=== PATIENT | female | born 1995 | race African-American/Black ===

== ENCOUNTER 2016-12-05 14:55 | Emergency (ER) | payer OTHER ==
--- NOTE | 2016-12-05 15:04 | PDOC ---
History of Present Illness - General History Source: Patient Exam Limitations: No Limitations - History of Present Illness Initial Comments: 12/05/16 15:23 The patient is a 21 year old female, with no significant past medical history who presents to the emergency department with sore throat for 2 days. She reports also having trouble swallowing solids and liquids. She denies taking any [id number] medication for pain relief. She reports also having back pain. She denies recent fevers, chills, headache or dizziness. She denies recent nausea, vomit, diarrhea or constipation. LMP november 02, 2016. Allergies: NKDA Past surgical history: denies Social history: Nonsmoker. Denies EtOH and drug abuse. <Deshawn Silva - Last Filed: 12/05/16 15:55> <Jackie Davis - Last Filed: 12/05/16 17:54> - General Chief Complaint: Sore Throat Stated Complaint: SORE THROAT Time Seen by Provider: 12/05/16 14:57 Past History <Deshawn Silva - Last Filed: 12/05/16 15:55> <Jackie Davis - Last Filed: 12/05/16 17:54> - Past Medical History Allergies/Adverse Reactions: Allergies Allergy/AdvReac Type Severity Reaction Status Date / Time No Known Allergies Allergy Verified 12/05/16 15:30 Home Medications: Ambulatory Orders NK [No Known Home Medication] 12/05/16 Review of Systems - Review of Systems Able to Perform ROS?: Yes Comments:: 12/05/16 15:23 GENERAL/CONSTITUTIONAL: No fever or chills. No weakness. HEAD, EYES, EARS, NOSE AND THROAT: +sore throat. No change in vision. No ear pain or discharge. CARDIOVASCULAR: No chest pain or shortness of breath. RESPIRATORY: No cough, wheezing, or hemoptysis. GASTROINTESTINAL: No nausea, vomiting, diarrhea or constipation. GENITOURINARY: No dysuria, frequency, or change in urination. MUSCULOSKELETAL: +back pain. No joint or muscle swelling or pain. No neck pain. SKIN: No rash NEUROLOGIC: No headache, vertigo, loss of consciousness, or change in strength/ sensation. ENDOCRINE: No increased thirst. No abnormal weight change. HEMATOLOGIC/LYMPHATIC: No anemia, easy bleeding, or history of blood clots. ALLERGIC/IMMUNOLOGIC: No hives or skin allergy. <Deshawn Sliva - Last Filed: 12/05/16 15:55> *Physical Exam - Vital Signs Last Vital Signs Temp Pulse Resp BP Pulse Ox 100.1 F H 101 H 20 128/93 99 12/05/16 14:56 12/05/16 14:56 12/05/16 14:56 12/05/16 14:56 12/05/16 14:56 - Physical Exam Comments: 12/05/16 15:55 GENERAL: Awake, alert, and fully oriented, ill appearing but nontoxic. HEAD: No signs of trauma EYES: PERRLA, EOMI, sclera anicteric, conjunctiva clear ENT: Auricles normal inspection, hearing grossly normal, nares patent, oropharynx erythema and bilateral tonsillar exudates with tonsillar hypertrophy bilaterally. NECK: Normal ROM, supple, + anterior cervical lymphadenopathy. LUNGS: Breath sounds equal, clear to auscultation bilaterally. No wheezes, and no crackles HEART: Regular rate and rhythm, normal S1 and S2, no murmurs, rubs or gallops ABDOMEN: Soft, nontender, normoactive bowel sounds. No guarding, no rebound. No masses EXTREMITIES: Normal range of motion, no edema. No clubbing or cyanosis. No cords, erythema, or tenderness NEUROLOGICAL: Cranial nerves II through XII grossly intact. Normal speech, normal gait SKIN: Warm, Dry, normal turgor, no rashes or lesions noted. <Deshawn Silva - Last Filed: 12/05/16 15:55> *DC/Admit/Observation/Transfer - Attestations Scribe Attestion: 12/05/16 15:23 Documentation prepared by Deshawn Silva, acting as medical practice administrator for Jackie Davis MD. <Deshawn Silva - Last Filed: 12/05/16 15:55> - Discharge Dispostion Admit: No <Jackie Davis - Last Filed: 12/05/16 17:54> Diagnosis at time of Disposition: Strep throat - Discharge Dispostion Disposition: HOME Condition at time of disposition: Stable - Patient Instructions Printed Discharge Instructions: DI for Strep Throat Addendum entered and electronically signed by Jackie Davis MD 12/05/16 18:25: Progress Note - Progress Note Progress Note: After discharge, pt returned to ED at 18:19, stating she hit her head on the door as she exited the ED. She states that it would not open, so she forced it open, then it started to automatically open and hit her head. She did not see the sign to use the button to open the door. She did not lose consciousness. She denies nausea, vomiting, vision change. C/o localized pain to the R forehead. Noted to have small area of swelling. No indication for advanced imaging at this time. Pt was offered an ice pack, pain medication, or to let her lie down on a stretcher. She declined and left ED.
[2016-12-05 15:15] VITALS: BP 128/93; PULSE 101
[2016-12-05] MEDS ORDERED: ACETAMINOPHEN 650 MG/20.3 ML ORAL SOLUTION (CUPS) PO ONE (15:23)
[2016-12-05] MEDS ORDERED: PENICILLIN G BENZATHINE 1,200,000 UNIT/2 ML PFS IM ONE (15:30)
[2016-12-05] MEDS ORDERED: ONDANSETRON *ODT* 4 MG TABLET SL ONE (15:30)
[2016-12-05] MEDS ORDERED: DEXAMETHASONE LIQUID 0.5 MG/5 ML 240 ML BULK BOTTLE PO ONE (15:31)
[2016-12-05] MEDS ORDERED: ACETAMINOPHEN 650 MG/20.3 ML ORAL SOLUTION (CUPS) ONE (15:44)
[2016-12-05] MEDS ORDERED: ONDANSETRON *ODT* 4 MG TABLET ONE (15:44)
[2016-12-05] MEDS ORDERED: DEXAMETHASONE SOD PHOSPHATE 10 MG/1 ML VIAL ONE (15:45)
[2016-12-05] MEDS ORDERED: PENICILLIN G BENZATHINE 2,400,000 UNIT/4 ML PFS ONE (15:46)
[2016-12-05 17:50] LABS: URINE APPEARANCE Clear; URINE BILIRUBIN 1+ (NEGATIVE); URINE BLOOD 3+ (NEGATIVE); URINE COLOR YELLOW; URINE GLUCOSE (UA) Negative (NEGATIVE); URINE KETONE 4+ (NEGATIVE); URINE LEUK ESTERASE Trace (NEGATIVE); URINE NITRITE Negative (NEGATIVE); URINE PROTEIN 1+ (NEGATIVE); URINE UROBILINOGEN 0.2 E.U/dl (0.2-1.0)
[2016-12-05 17:56] LABS: URINE BACTERIA FEW /hpf (NEGATIVE)
[2016-12-05 18:16] VITALS: TEMP 99
== END 2016-12-05 18:16 | disposition home or self-care (01) ==
LOC: FER 14:55
DX: J02.0 Streptococcal pharyngitis (principal)
CPT/HCPCS: 81003; 81015; 84703; 87070; 87077; 87430; 99282-25

== ENCOUNTER 2017-05-13 22:35 | Emergency (ER) | payer OTHER ==
[2017-05-13 22:42] VITALS: BP 107/73; PULSE 75; TEMP 98.1; BMI 30.9
--- NOTE | 2017-05-13 22:45 | PDOC ---
History of Present Illness - General Chief Complaint: Pain, Acute Stated Complaint: LUMP ON SIDE OF NECK Time Seen by Provider: 05/13/17 22:44 History Source: Patient Exam Limitations: No Limitations - History of Present Illness Initial Comments: 05/13/17 23:04 This is a 22-year-old female who comes in complaining of a lump on the side of her neck. Patient said she has had the low 1 day. Patient complains that it is painful with some radiation to towards her ear. Patient denies any fevers or chills. PAST MEDICAL HISTORY: no significant history PAST SURGICAL HISTORY: no significant history FAMILY HISTORY: no pertinant history SOCIAL HISTORY: Pt lives with family and is employed. MEDICATIONS: reviewed ALLERGIES: As per nursing notes Review of Systems General: No fevers or chills, no weakness, no weight loss HEENT: No change in vision. No sore throat,. No ear pain, lump on his neck as per history of present illness CardioVascular: No chest pain or shortness of breath Respiratory:No cough, or wheezing. Gastrointestinal: no nausea, vomitting, diarrhea or constipation, No rectal bleeding Genitourinary: No dysuria, hematuria, or frequency Musculoskeletal: No joint or muscle pain or swelling Neurologic: No headache, vertigo, dizziness or loss of consciousness Psychiatric: nor depression Skin: No rashes or easy bruising Endocrine: no increased thirst or abnormal weight change Allergic: no skin or latex allergy All other systems reviewed and normal GENERAL: The patient is awake, alert, and fully oriented, in no acute distress. HEAD: Normal with no signs of trauma. NECK: There is a small area that appears to be a bug bite with an associated area of tenderness. Area of tenderness is approximately 3 x 3 mm. Area of tenderness is well-defined and firm. EYES: Pupils equal, round and reactive to light, extraocular movements intact, sclera anicteric, conjunctiva clear. EXTREMITIES: Normal range of motion, no edema. NEUROLOGICAL: Normal speech, normal gait. PSYCH: Normal mood, normal affect. SKIN: Warm, Dry, normal turgor, no rashes or lesions noted. Assessment and plan: This is a 22-year-old female with a localized reaction to a bug bite with possible reactive lymph node. Reassured patient that reaction is Minor and well resolved on its own with time likely 2-3 days. Told patient to follow-up with her memory care doctor in 2-3 days if not improved. Past History - Past Medical History Allergies/Adverse Reactions: Allergies Allergy/AdvReac Type Severity Reaction Status Date / Time No Known Allergies Allergy Verified 05/13/17 22:38 Home Medications: Ambulatory Orders NK [No Known Home Medication] 12/05/16 Other medical history: DENIES - Immunization History Immunization Up to Date: Yes - Psycho/Social/Smoking Cessation Hx Anxiety: No Suicidal Ideation: No Smoking History: Never smoked Have you smoked in the past 12 months: No Information on smoking cessation initiated: No Hx Alcohol Use: No Drug/Substance Use Hx: No Substance Use Type: None *Physical Exam - Vital Signs Last Vital Signs Temp Pulse Resp BP Pulse Ox 98.1 F 75 16 107/73 100 05/13/17 22:39 05/13/17 22:39 05/13/17 22:39 05/13/17 22:39 05/13/17 22:39 *DC/Admit/Observation/Transfer Diagnosis at time of Disposition: Enlarged lymph node in neck Bug bite Qualifiers: Encounter type: initial encounter Qualified Code(s): W57.XXXA - Bitten or stung by nonvenomous insect and other nonvenomous arthropods, initial encounter - Discharge Dispostion Disposition: HOME Condition at time of disposition: Stable Admit: No - Patient Instructions Additional Instructions: Tylenol or Motrin as needed for pain Return to the emergency department immediately with ANY new, persistent or worsening symptoms. Continue any medications as previously prescribed by your physician. You should follow up with your primary doctor as soon as possible regarding today's emergency department visit. . Please make sure your doctor reviews the results of your emergency evaluation. Thank you for coming to the Emergency Department today for your care. It was a pleasure to see you today. Please note that your evaluation is INCOMPLETE until you follow-up with your doctor.
== END 2017-05-13 23:25 | disposition home or self-care (01) ==
LOC: FER 22:35
DX: R59.9 Enlarged lymph nodes, unspecified (principal); W57.XXXA Bitten or stung by nonvenomous insect and other nonvenomous arthropods, initial encounter; Y93.89 Activity, other specified; Y92.9 Unspecified place or not applicable
CPT/HCPCS: 84703; 99281-25